=== PATIENT | male | born 1975 | race Caucasian/White ===

== ENCOUNTER → 2018-08-20 | Outpatient (CLI) | payer BC ==
--- NOTE | 2018-08-20 14:23 | PCVCIMAG ---
APPROVED REPORT Study performed: 08/20/2018 09:52:17 Exam: Stress Echocardiogram Indication: Dizziness, Fatigue Patient Location: Echo lab Stress Nurse: Charo Oates RN Status: routine Ht: 6 ft 0 in HR: 66 bpm BP: 116/84 mmHg Rhythm: NSR Procedure The patient underwent an Exercise Stress Test using the Phil Protocol. Blood pressure, heart rate, and EKG were monitored. An Echocardiogram was performed by fire management technician in four stages in quad fashion. At peak stress, four selected images were obtained and placed side by side with resting images for comparison. Stress Test Details Stress Test: Exercise stress testing was performed using a Phil protocol. HR Resting HR: 66 bpmMax Heart Rate (APMHR): 179 bpm Max HR Achieved: 164 bpmTarget HR (85% APMHR): 152 bpm % of APMHR: 91 Recovery HR: 100 bpm HR response to stress: Normal HR response to stress BP Resting BP: 116/84 mmHg Max BP: 180/90 mmHg Recovery BP: 150/80 mmHg BP response to stress: Normal blood pressure response to stress. ECG Resting ECG: Sinus Rhythm Stress ECG: Sinus Rhythm Recovery ECG: Sinus Rhythm Clinical Reason for Termination: Maximal effort, Fatigue Exercise duration: 10 min 55 sec Highest Stage Achieved: Stage 4: 4.2 mph at 16% grade. Exercise capacity: 13.70 METs Overall Exercise Capacity for Age: Good Stress ECG Conclusion ECG: Non-ischemic Clinical: Non-ischemic Pre-Stress Echo The resting Echocardiogram showed normal left ventricular contractility with an estimated Ejection Fraction of about 50-55%. Normal wall motion in all segments on baseline images. The ascending aorta is mildly dilated (4.2cm). Post-Stress Echo The stress Echocardiogram showed normal left ventricular contractility with an estimated Ejection Fraction of about 60-65%. Normal augmentation of wall motion in all segments on post stress images. Clinical No clinical or ECG evidence for ischemia. Conclusion Clinical Response: Non-ischemic Exercise Capacity: Average Stress ECG Response: Non-ischemic Stress Echo Images: Non-ischemic The left ventricle is normal in size and wall thickness in both the rest and stress images. No clinical, EKG or echocardiographic evidence for ischemia. The ascending aorta is mildly dilated (4.2cm). Other Information Study Quality: Adequate <Conclusion> The left ventricle is normal in size and wall thickness in both the rest and stress images. No clinical, EKG or echocardiographic evidence for ischemia. The ascending aorta is mildly dilated (4.2cm).
== END | disposition home or self-care (01) ==
LOC: PCVCIMAG 09:44
PROVIDERS: ATTEND Internal Medicine Cardiovascular Disease
DX: R42 Dizziness and giddiness (principal); R53.83 Other fatigue; R55 Syncope and collapse; Z87.891 Personal history of nicotine dependence; Z88.8 Allergy status to other drugs, medicaments and biological substances
CPT/HCPCS: 93325; 93351